=== PATIENT | female | born 1960 | race Caucasian/White ===

== ENCOUNTER 2016-08-23 10:39 | Inpatient (IN) | payer OTHER ==
[~2016-08-23] VITALS: Ht 165.1 cm; Wt 68.0 kg
[~2016-08-23 10:39] MED LIST: ALBU17IN INH; ALBU83IN INH; CAL-500T PO; CHEL50TA PO; CYTO25TA PO; LEVO75TA4 PO; VITA20008 PO; XANA0.25 PO
[2016-08-23] MEDS ORDERED: MIDAZOLAM INJ 2 MG/2 ML VIAL (J2250) As Ordered ONE ×2 (10:40→14:31)
[2016-08-23] MEDS ORDERED: fentaNYL 100 MCG/2 ML INJECTION (J3010) As Ordered ONE (10:41)
[2016-08-23] MEDS ORDERED: LIDOCAINE 2% INJ 100 MG/5 ML SDV (FOR ANES.) As Ordered ONE (10:43)
[2016-08-23] MEDS ORDERED: PROPOFOL 200 MG/20 ML VIAL As Ordered ONE (10:43)
[2016-08-23] MEDS ORDERED: LR 1,000 ML IV SCH ×4 (11:00→16:15)
[2016-08-23] MEDS ORDERED: CHLOROPROCAINE 2 % INJ PRES.FREE 20 ML VIAL (J2400) As Ordered ONE (13:04)
[2016-08-23] MEDS ORDERED: LR 300 ML IV ONE (14:15)
[2016-08-23] MEDS ORDERED: NORCO, ANEXSIA 5/325MG TABLET (HYDROcodone/ACETAMINOPHEN) PO PRN ×2 (14:15→16:15)
[2016-08-23] MEDS ORDERED: ONDANSETRON 4MG/2ML VIAL (J2405) IV PRN ×2 (14:15→16:15)
[2016-08-23] MEDS: fentaNYL 100 MCG/2 ML INJECTION (J3010) IV PRN ×2 (14:48→14:58)
[2016-08-23] MEDS ORDERED: KETOROLAC 30 MG/ML VIAL (J1885) As Ordered ONE (15:17)
[2016-08-23] MEDS ORDERED: KETOROLAC 30 MG/ML VIAL (J1885) IV PRN ×2 (15:45→16:15)
[2016-08-23] MEDS ORDERED: fentaNYL 100 MCG/2 ML INJECTION (J3010) IV PRN (16:15)
[2016-08-23] MEDS ORDERED: LR 300 ML IV SCH (16:15)
[2016-08-23] MEDS ORDERED: FIORICET TAB PO ONE (16:30)
[2016-08-23 17:00] VITALS: BP 132/84
[2016-08-23 17:30] VITALS: BP 130/87
[2016-08-23 18:30] VITALS: BP 135/87
[2016-08-23] MEDS: NORCO, ANEXSIA 5/325MG TABLET (HYDROcodone/ACETAMINOPHEN) PO PRN (18:48)
[2016-08-23 19:30] VITALS: BP 115/70
[2016-08-23] MEDS: ALPRAZolam 0.25 MG TAB PO SCH (19:59)
[2016-08-23 20:30] VITALS: BP 143/93
[2016-08-23] MEDS ORDERED: FIORICET TAB PO PRN (20:30)
[2016-08-23] MEDS ORDERED: FIORICET TAB PO SCH (20:30)
[2016-08-23] MEDS: FIORICET TAB PO SCH (21:10)
[2016-08-23 21:30] VITALS: BP 102/63
[2016-08-24] MEDS: FIORICET TAB PO SCH ×6 (00:40→20:41)
[2016-08-24 02:00] VITALS: BP 116/77
[2016-08-24] MEDS: NORCO, ANEXSIA 5/325MG TABLET (HYDROcodone/ACETAMINOPHEN) PO PRN ×2 (02:10→20:42)
[2016-08-24 06:00] VITALS: BP 115/81
--- NOTE | 2016-08-24 09:13 | RO ---
DATE OF PROCEDURE: 08/23/2016 PREOPERATIVE DIAGNOSIS: Perianal abscess versus fistula. POSTOPERATIVE DIAGNOSIS: Perianal fistula. PROCEDURES: Exam under anesthesia with fistulotomy. SURGEON: Dr. Sanjay Abrams FORGE OPERATOR HELPER: None. ANESTHESIA: Spinal COMPLICATIONS: None. INDICATIONS FOR PROCEDURE: The patient is a 56-year-old female who presented to my office about three or four months ago with an abscess perianally. The abscess cleared up; however, she was left with a persistent draining wound posteriorly. Recommendation is to proceed with exam under anesthesia, possible Seton placement, and possible fistulotomy. The risks and benefits of the procedure not limited to, but including bleeding, infection, need for further surgery and possible incontinence were discussed in detail with the patient. Informed consent was obtained and the procedure was planned. PROCEDURE: The patient was brought back to operating room three after sufficient spinal sedation and she was placed in the prone jackknife position. Next, the rectal area was sterilely prepped and draped with Betadine. Next, a time-out was done to confirm proper patient and proper procedure. Following that, a bivalved retractor was placed in the rectum. Under gentle probe of the fistulous tract, it passed easily inside of the rectum without any complications. The tract was easily identified. It was very superficial, only had to go through about 2 mm of the muscle. This tract was opened up using electrocautery. Once this was completed, the wound was covered with a 4x4 and tape. The patient was then transferred back to recovery room in stable condition.
[2016-08-24 10:00] VITALS: BP 138/85
[2016-08-24 14:00] VITALS: BP 120/88
[2016-08-24] MEDS: MOM 30ML SUSPENSION UDC PO PRN (16:44)
[2016-08-24] MEDS: LIOTHYRONINE 25 MCG TAB PO SCH (18:10)
[2016-08-24] MEDS ORDERED: LR 500 ML IV ONE (18:45)
[2016-08-24] MEDS: SENOKOT S TAB PO SCH (20:41)
[2016-08-24] MEDS: ALPRAZolam 0.25 MG TAB PO SCH (20:41)
[2016-08-24 22:00] VITALS: BP 141/87
[2016-08-25] MEDS: FIORICET TAB PO SCH ×8 (03:48→22:22)
[2016-08-25] MEDS: LEVOTHYROXINE 0.075 MG TAB (75 MCG) PO SCH (05:36)
[2016-08-25 06:00] VITALS: BP 135/90
[2016-08-25] MEDS: NORCO, ANEXSIA 5/325MG TABLET (HYDROcodone/ACETAMINOPHEN) PO PRN ×2 (06:30→17:41)
[2016-08-25] MEDS ORDERED: ALBUTEROL 90 MCG/ACT 8GM HFA INHALER INH PRN (08:30)
[2016-08-25] MEDS ORDERED: LIOTHYRONINE 25 MCG TAB PO SCH (09:00)
[2016-08-25] MEDS: SENOKOT S TAB PO SCH ×2 (09:53→22:21)
[2016-08-25] MEDS: VITAMIN D 1,000 INTERNATIONAL UNITS TABLET PO SCH (09:53)
[2016-08-25] MEDS ORDERED: fentaNYL 100 MCG/2 ML INJECTION (J3010) As Ordered ONE (12:43)
[2016-08-25] MEDS ORDERED: MIDAZOLAM INJ 2 MG/2 ML VIAL (J2250) As Ordered ONE (12:43)
[2016-08-25] MEDS ORDERED: fentaNYL 100 MCG/2 ML INJECTION (J3010) IV ONE (13:30)
[2016-08-25] MEDS ORDERED: MIDAZOLAM INJ 2 MG/2 ML VIAL (J2250) IV ONE (13:30)
[2016-08-25] MEDS ORDERED: LR 1,000 ML IV SCH (13:45)
[2016-08-25] MEDS ORDERED: LR 500 ML IV SCH (13:45)
[2016-08-25] MEDS: MOM 30ML SUSPENSION UDC PO PRN (14:48)
[2016-08-25] MEDS: LIOTHYRONINE 25 MCG TAB PO SCH (14:49)
[2016-08-25 22:00] VITALS: BP 128/85
[2016-08-25] MEDS: ALPRAZolam 0.25 MG TAB PO SCH (22:21)
[2016-08-26] MEDS: FIORICET TAB PO SCH ×6 (01:43→21:00)
[2016-08-26] MEDS: NORCO, ANEXSIA 5/325MG TABLET (HYDROcodone/ACETAMINOPHEN) PO PRN ×3 (01:44→18:34)
[2016-08-26 06:00] VITALS: BP 122/83
[2016-08-26] MEDS: LEVOTHYROXINE 0.075 MG TAB (75 MCG) PO SCH (06:22)
[2016-08-26] MEDS: SENOKOT S TAB PO SCH ×2 (08:34→20:34)
[2016-08-26] MEDS: VITAMIN D 1,000 INTERNATIONAL UNITS TABLET PO SCH (08:34)
[2016-08-26] MEDS ORDERED: ONDANSETRON 4MG/2ML VIAL (J2405) IV PRN (11:15)
[2016-08-26] MEDS: LR 1,000 ML IV SCH (11:49)
[2016-08-26 12:18] LABS: BASO % 0.7 % (0.0-1.0); EOS # 0.2 K/mm3 (0.0-0.50); EOS % 3.2 % (0.0-3.0); LARGE UNSTAINED CELL # 0.1 K/mm3 (0.0-0.4); LARGE UNSTAINED CELL % 1.9 % (0.0-4.0); LYMPH # 1.9 K/mm3 (1.5-4.5); MEAN CORPUSCULAR HEMOGLOBIN 29.8 pg (27.0-33.0); MEAN CORPUSCULAR HGB CONC 32.6 g/dl (32.0-36.5); MEAN CORPUSCULAR VOLUME 91.3 fl (80.0-96.0); MONO # 0.4 K/mm3 (0.0-0.8); MONO % 5.6 % (0.0-5.0); NEUTROPHILS # 3.8 K/mm3 (1.8-7.7); NEUTROPHILS % 60.6 % (36.0-66.0); PLATELET COUNT, AUTOMATED 291 k/mm3 (150-450); RED CELL DISTRIBUTION WIDTH 12.7 % (11.5-14.5); WHITE BLOOD COUNT 6.2 K/mm3 (4.0-10.0)
[2016-08-26 12:26] LABS: ALBUMIN 3.7 GM/DL (3.2-5.2); ALBUMIN/GLOBULIN RATIO 1.28 (1.00-1.93); ALKALINE PHOSPHATASE 80 U/L (45-117); ALT/SGPT 24 U/L (12-78); ANION GAP 7 MEQ/L (8-16); AST/SGOT 17 U/L (15-37); BILIRUBIN,TOTAL 0.2 MG/DL (0.2-1.0); BLOOD UREA NITROGEN 7 MG/DL (7-18); CALCIUM LEVEL 9.2 MG/DL (8.5-10.1); CARBON DIOXIDE LEVEL 31 MEQ/L (21-32); CHLORIDE LEVEL 102 MEQ/L (98-107); CREATININE FOR GFR 0.87 MG/DL (0.55-1.02); GLOMERULAR FILTRATION RATE > 60.0 (>51); GLUCOSE, FASTING 132 MG/DL (70-105); POTASSIUM SERUM 4.3 MEQ/L (3.5-5.1); SODIUM LEVEL 140 MEQ/L (136-145); TOTAL PROTEIN 6.6 GM/DL (6.4-8.2)
[2016-08-26] MEDS: MORPHINE 2 MG/ML 1ML SYRINGE IV PRN (13:10)
[2016-08-26] MEDS: MOM 30ML SUSPENSION UDC PO PRN ×2 (15:44→20:34)
[2016-08-26] MEDS: LIOTHYRONINE 25 MCG TAB PO SCH (15:45)
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
[2016-08-26] MEDS: ALPRAZolam 0.25 MG TAB PO SCH (20:34)
[2016-08-26 22:00] VITALS: BP 134/69
[2016-08-27] MEDS: FIORICET TAB PO SCH ×6 (01:17→20:57)
[2016-08-27] MEDS: LR 1,000 ML IV SCH ×2 (01:22→14:08)
[2016-08-27] MEDS: NORCO, ANEXSIA 5/325MG TABLET (HYDROcodone/ACETAMINOPHEN) PO PRN ×3 (04:20→19:09)
[2016-08-27] MEDS: LEVOTHYROXINE 0.075 MG TAB (75 MCG) PO SCH (05:15)
[2016-08-27 06:00] VITALS: BP 116/65
--- NOTE | 2016-08-27 08:24 | REP ---
MR venography of the head without and with IV contrast: History: Severe atypical headache 3 days post spinal. Post spinal tap headache versus migraine versus other. Gadolinium enhancement dose: 13 mL of intravenous ProHance is administered. Technique: 2-D [id number] pre-gadolinium enhanced imaging and post-gadolinium enhanced MR venography is acquired. Maximal intensity projection images are generated and displayed rotationally. Source sagittal images are viewed. MR venography findings: The sagittal sinus appears normal widely patent and normal in caliber. The right transverse and sigmoid sinus is widely patent and unremarkable. The left transverse and sigmoid sinus segment appears patent although it is quite small especially compared to its right-sided counterpart. No filling defect is seen to suggest a thrombus. This may be developmental size variation. It is however fairly dramatic. The superficial cortical veins and the straight sinus are unremarkable. Internal cervical vein is unremarkable. Exam is otherwise unremarkable. Impression: Asymmetry in the size of the transverse and sigmoid sinuses right much larger than left. Most likely developmental variation. Otherwise negative MR venography. Signed by Jorgito Lim MD 08/27/2016 08:43 A
--- NOTE | 2016-08-27 08:26 | REP ---
MRI study brain without and with IV gadolinium: History: Atypical severe headache 3 days status post spinal. No comparison brain imaging. Gadolinium enhancement dose: 13 mL of intravenous ProHance is administered. Technique: Axial and sagittal imaging planes are utilized for T1 and T2-weighted scans. Sequences include spin-echo, fast spin echo, FLAIR, and diffusion weighted sequences. Post gadolinium enhanced T1-weighted axial and coronal sequences are performed. MRI findings: The bony calvarium appears intact. No significant paranasal sinus disease is seen. No intraorbital abnormality is appreciated. There is no evidence of intracranial hemorrhage. Craniocervical junction and upper cervical cord are unremarkable. Lateral third and fourth ventricles are normal in size and position. There are mild scattered periventricular and subcortical white matter T2 hyperintensities consistent with mild small vessel changes. Diffusion weighted scans show no evidence of restricted diffusion to suggest acute ischemia. There is no evidence of hemorrhage. Postcontrast images show no evidence of abnormal enhancement or filling defect in any of the dural sinuses. The right transverse and sagittal sinus is quite a bit larger than the left as seen on the MR venography. No MR evidence to suggest associated venous infarct. Impression: Mild small vessel changes. No acute intracranial abnormality. Signed by Jorgito Lim MD 08/27/2016 08:43 A
[2016-08-27] MEDS: MOM 30ML SUSPENSION UDC PO PRN (09:08)
[2016-08-27] MEDS: MORPHINE 2 MG/ML 1ML SYRINGE IV PRN ×3 (09:09→22:47)
[2016-08-27] MEDS: SENOKOT S TAB PO SCH ×2 (09:09→20:58)
[2016-08-27] MEDS: VITAMIN D 1,000 INTERNATIONAL UNITS TABLET PO SCH (09:10)
[2016-08-27] MEDS ORDERED: MIRALAX *UNIT DOSE* 17GM PACKET PO PRN (13:00)
[2016-08-27 14:00] VITALS: BP 130/70
[2016-08-27] MEDS: LIOTHYRONINE 25 MCG TAB PO SCH (15:15)
[2016-08-27] MEDS: AMITRIPTYLINE 50 MG TAB PO SCH (20:57)
[2016-08-27] MEDS: ALPRAZolam 0.25 MG TAB PO SCH (20:58)
[2016-08-27] MEDS ORDERED: NORTRIPTYLINE 25 MG CAP PO SCH (21:00)
[2016-08-27 22:00] VITALS: BP 135/79
[2016-08-28] MEDS: MORPHINE 2 MG/ML 1ML SYRINGE IV PRN ×2 (03:05→18:14)
[2016-08-28] MEDS: FIORICET TAB PO SCH ×6 (03:05→21:14)
[2016-08-28] MEDS: LR 1,000 ML IV SCH ×2 (03:07→16:19)
[2016-08-28 06:00] VITALS: BP 121/80
[2016-08-28] MEDS: LEVOTHYROXINE 0.075 MG TAB (75 MCG) PO SCH (06:11)
[2016-08-28] MEDS: NORCO, ANEXSIA 5/325MG TABLET (HYDROcodone/ACETAMINOPHEN) PO PRN ×2 (08:44→21:15)
[2016-08-28] MEDS: VITAMIN D 1,000 INTERNATIONAL UNITS TABLET PO SCH (08:44)
[2016-08-28] MEDS: SENOKOT S TAB PO SCH ×2 (08:44→21:14)
[2016-08-28 14:00] VITALS: BP 132/80
[2016-08-28] MEDS: LIOTHYRONINE 25 MCG TAB PO SCH (16:19)
[2016-08-28] MEDS: ALPRAZolam 0.25 MG TAB PO SCH (21:14)
[2016-08-28] MEDS: AMITRIPTYLINE 50 MG TAB PO SCH (21:14)
[2016-08-28 22:00] VITALS: BP 124/70
[2016-08-29] MEDS: FIORICET TAB PO SCH ×6 (01:06→21:31)
[2016-08-29] MEDS: LR 1,000 ML IV SCH ×2 (05:55→18:46)
[2016-08-29 06:00] VITALS: BP 145/91
[2016-08-29] MEDS: LEVOTHYROXINE 0.075 MG TAB (75 MCG) PO SCH (06:07)
[2016-08-29] MEDS: NORCO, ANEXSIA 5/325MG TABLET (HYDROcodone/ACETAMINOPHEN) PO PRN ×3 (06:09→23:41)
[2016-08-29] MEDS: VITAMIN D 1,000 INTERNATIONAL UNITS TABLET PO SCH (08:57)
[2016-08-29] MEDS: SENOKOT S TAB PO SCH ×2 (08:57→21:30)
[2016-08-29] MEDS: MOM 30ML SUSPENSION UDC PO PRN (10:52)
[2016-08-29] MEDS: MORPHINE 2 MG/ML 1ML SYRINGE IV PRN (10:53)
[2016-08-29 14:00] VITALS: BP 124/77
[2016-08-29] MEDS: LIOTHYRONINE 25 MCG TAB PO SCH (16:10)
[2016-08-29] MEDS: AMITRIPTYLINE 50 MG TAB PO SCH (21:30)
[2016-08-29] MEDS: ALPRAZolam 0.25 MG TAB PO SCH (21:30)
[2016-08-29 22:00] VITALS: BP 144/87
[2016-08-30] MEDS: FIORICET TAB PO SCH ×7 (02:06→21:06)
[2016-08-30] MEDS: NORCO, ANEXSIA 5/325MG TABLET (HYDROcodone/ACETAMINOPHEN) PO PRN (05:25)
[2016-08-30 06:00] VITALS: BP 106/65
[2016-08-30] MEDS: LEVOTHYROXINE 0.075 MG TAB (75 MCG) PO SCH (06:41)
[2016-08-30] MEDS ORDERED: MAGNESIUM CITRATE 300 ML BTL PO ONE (08:00)
[2016-08-30] MEDS: SENOKOT S TAB PO SCH ×2 (09:17→21:06)
[2016-08-30] MEDS: VITAMIN D 1,000 INTERNATIONAL UNITS TABLET PO SCH (09:18)
[2016-08-30 10:00] VITALS: BP 118/72
[2016-08-30 14:00] VITALS: BP 122/76
[2016-08-30] MEDS: LIOTHYRONINE 25 MCG TAB PO SCH (16:04)
[2016-08-30] MEDS: AMITRIPTYLINE 50 MG TAB PO SCH (21:05)
[2016-08-30] MEDS: ALPRAZolam 0.25 MG TAB PO SCH (21:05)
[2016-08-30 22:00] VITALS: BP 135/69
[2016-08-31] MEDS: FIORICET TAB PO SCH ×6 (00:36→20:24)
[2016-08-31 06:00] VITALS: BP 148/76
[2016-08-31] MEDS: LEVOTHYROXINE 0.075 MG TAB (75 MCG) PO SCH (06:30)
[2016-08-31] MEDS: SENOKOT S TAB PO SCH ×2 (08:34→20:25)
[2016-08-31] MEDS: VITAMIN D 1,000 INTERNATIONAL UNITS TABLET PO SCH (08:34)
[2016-08-31] MEDS: LIOTHYRONINE 25 MCG TAB PO SCH (15:00)
[2016-08-31] MEDS: ALPRAZolam 0.25 MG TAB PO SCH (20:25)
[2016-08-31] MEDS: AMITRIPTYLINE 50 MG TAB PO SCH (20:25)
[2016-08-31 22:00] VITALS: BP 145/88
[2016-09-01] MEDS: FIORICET TAB PO SCH ×6 (00:12→20:22)
[2016-09-01] MEDS: IBUPROFEN 600 MG TAB PO PRN ×3 (03:00→23:25)
[2016-09-01] MEDS: LEVOTHYROXINE 0.075 MG TAB (75 MCG) PO SCH (05:55)
[2016-09-01 06:00] VITALS: BP 119/76
[2016-09-01] MEDS: SENOKOT S TAB PO SCH ×2 (09:28→20:23)
[2016-09-01] MEDS: VITAMIN D 1,000 INTERNATIONAL UNITS TABLET PO SCH (09:28)
[2016-09-01 14:00] VITALS: BP 159/96
[2016-09-01] MEDS: LIOTHYRONINE 25 MCG TAB PO SCH (16:07)
[2016-09-01] MEDS: ALPRAZolam 0.25 MG TAB PO SCH (20:22)
[2016-09-01] MEDS: AMITRIPTYLINE 50 MG TAB PO SCH (20:22)
--- NOTE | 2016-09-01 20:46 | DSES ---
DATE OF ADMISSION: 08/26/2016 DATE OF DISCHARGE: 09/01/2016 ADMISSION DIAGNOSIS: Perianal fistula. DISCHARGE DIAGNOSIS: Perianal fistula with spinal headache. HOSPITAL COURSE: The patient is a 56-year-old female who came in to see me for an elective exam under anesthesia and possible fistulotomy. That procedure was performed on August 23. Postoperatively, in the recovery room she immediately had photophobia and severe headache. She was kept overnight. The next morning she continued to have pains and severe photophobia, severe head neck pains that did not improve. By the next day, August 25, without having any more improvement, yet she was able to site up. She had a blood patch completed. After the blood patch she had about 20% improvement but still was not sufficient enough to go home, so she stayed again overnight. The following morning on August 26, she had an MRI of the brain done as well as some lab work and a neurology consult with Dr. Ortez, who agreed that this was most likely a spinal headache; however, it could be a severe migraine, even though she did not have any history of migraines. He recommended just to continue to watch and possibly repeat the blood patch if needed. She has been hesitant to repeat blood patch, so she has been going on up until today, getting slightly better during the days and then getting worse at night; however, today she is feeling much better. Still having some photophobia. Still cannot have lights on, but she does feel much improved. Her head and neck pains are better, and she is comfortable with going home today. PROCEDURES: Exam under anesthesia with fistulotomy on 08/23/2016. CONSULTATIONS: Neurology consult with Dr. Ortez. PLAN: Discharge home today. Followup with me in the office within the next 1-2 weeks. Call my office with any questions
[2016-09-01 22:00] VITALS: BP 123/70
[2016-09-02] MEDS: FIORICET TAB PO SCH ×5 (01:10→17:00)
[2016-09-02] MEDS: IBUPROFEN 600 MG TAB PO PRN ×2 (05:47→15:40)
[2016-09-02] MEDS: LEVOTHYROXINE 0.075 MG TAB (75 MCG) PO SCH (05:47)
[2016-09-02 06:00] VITALS: BP 129/72
[2016-09-02] MEDS: SENOKOT S TAB PO SCH (09:00)
[2016-09-02] MEDS: VITAMIN D 1,000 INTERNATIONAL UNITS TABLET PO SCH (09:00)
[2016-09-02] MEDS: LIOTHYRONINE 25 MCG TAB PO SCH (15:00)
== END 2016-09-02 18:37 | disposition home or self-care (01) | DRG 226 ==
LOC: M SDC 10:39 → M MS5PR 10:40 → UNDOADMIN 10:40 → M SDC 16:45 → M MS5PR 16:45 → M SDC 08-27 10:31 → M MS5PR 08-27 10:31 → M SDC 08-27 10:43 → M MS5PR 08-27 10:43 → M SDC 08-27 11:30 → M MS5PR 08-27 11:30
PROVIDERS: ADMIT Surgery; ATTEND Surgery
PROC: 0DQQ7ZZ Repair Anus, Via Natural or Artificial Opening (ICD-10-PCS; principal; 2016-08-26)
PROC: 3E0S3GC Introduction of Other Therapeutic Substance into Epidural Space, Percutaneous Approach (ICD-10-PCS; 2016-08-29)
DX: K60.3 Anal fistula (principal); E03.9 Hypothyroidism, unspecified; T88.59XA Other complications of anesthesia, initial encounter; Z79.899 Other long term (current) drug therapy; J45.909 Unspecified asthma, uncomplicated; Z88.0 Allergy status to penicillin; Z88.8 Allergy status to other drugs, medicaments and biological substances; G43.111 Migraine with aura, intractable, with status migrainosus; G97.1 Other reaction to spinal and lumbar puncture

== ENCOUNTER → 2018-11-21 | Outpatient (REF) | payer OTHER ==
[~2018-11-21] MED LIST changes: -CYTO25TA PO; +CYTO25TA6 PO
[2018-11-21 12:55] LABS: FREE T4 1.37 NG/DL (0.76-1.46); THYROID STIMULATING HORMONE 0.501 uIU/ML (0.358-3.740)
== END ==
LOC: M LABDRAW1 09:49
PROVIDERS: ATTEND Nurse Practitioner Family
DX: E03.9 Hypothyroidism, unspecified (principal)

== ENCOUNTER → 2019-05-20 | Outpatient (REF) | payer OTHER ==
[2019-05-20 12:57] LABS: FREE T4 1.62 NG/DL (0.76-1.46); THYROID STIMULATING HORMONE 1.74 uIU/ML (0.358-3.740)
== END ==
LOC: M LABDRAW1 11:44
PROVIDERS: ATTEND Nurse Practitioner Family
DX: E03.9 Hypothyroidism, unspecified (principal)

== ENCOUNTER → 2020-01-30 | Outpatient (CLI) | payer OTHER ==
[2020-01-30 12:59] LABS: FREE T4 1.61 NG/DL (0.76-1.46); THYROID STIMULATING HORMONE 6.37 uIU/ML (0.358-3.740)
== END ==
LOC: M PLALAB 08:40
PROVIDERS: ATTEND Internal Medicine Endocrinology, Diabetes & Metabolism
DX: E03.9 Hypothyroidism, unspecified (principal)

== ENCOUNTER → 2020-07-19 | Outpatient (CLI) | payer OTHER ==
[2020-07-19 15:22] LABS: FREE T4 1.41 NG/DL (0.76-1.46); THYROID STIMULATING HORMONE 0.23 uIU/ML (0.358-3.740)
== END ==
LOC: M PLALAB 11:03
PROVIDERS: ATTEND Nurse Practitioner Family
DX: E03.9 Hypothyroidism, unspecified (principal)

== ENCOUNTER → 2021-03-22 | Outpatient (CLI) | payer OTHER ==
--- NOTE | 2021-03-23 16:59 | REPVR ---
PROCEDURE INFORMATION: Exam: MR Head Without Contrast Exam date and time: 03/22/2021 11:38 AM Age: 60 years old Clinical indication: Pain; Headache; Migraine; Without aura; Additional info: Migraine EDEN w/ forgetfullness TECHNIQUE: Imaging protocol: MR of the head without contrast. COMPARISON: MRI-Brain W/O FOLL BY WITH 08/26/2016 1:47 PM FINDINGS: Brain: Mild scattered nonspecific T2/FLAIR hyperintensities of the periventricular and deep subcortical white matter, most likely secondary to chronic small vessel ischemic change. No intracranial hemorrhage or extra-axial fluid collection. No evidence of mass effect or midline shift. No restricted diffusion to suggest acute infarct. Cerebral ventricles: No ventriculomegaly. Bones/joints: Unremarkable. Paranasal sinuses: Normal as visualized. No acute sinusitis. Mastoid air cells: Partial opacification of right mastoid air cells. Orbital cavity: Unremarkable. Soft tissues: Unremarkable. IMPRESSION: 1. No acute intracranial pathology. 2. Partial opacification of right mastoid air cells. 3. Chronic findings, as above. Electronically signed by: Dwain Covington On 03/23/2021 16:59:22 PM
== END ==
LOC: M PLAIMG 10:59
PROVIDERS: ATTEND Nurse Practitioner Family
DX: G43.909 Migraine, unspecified, not intractable, without status migrainosus (principal)

== ENCOUNTER → 2023-10-26 | Outpatient (CLI) | payer MEDICARE ==
[~2023-10-26] MED LIST changes: +ALBU2.5V10 INH; -ALBU83IN INH
== END ==
LOC: M PLARAD 14:24
PROVIDERS: ATTEND Nurse Practitioner Family
DX: M25.511 Pain in right shoulder (principal); M19.011 Primary osteoarthritis, right shoulder